=== PATIENT | female | born 1935 | race Caucasian/White ===

== ENCOUNTER → 2016-10-17 | Outpatient (CLI) | payer MEDICARE, OTHER ==
--- NOTE | 2016-10-19 13:33 | RAD ---
EXAM DESCRIPTION: Pelvis CLINICAL HISTORY: 80 yearsFemale, LEFT HIP PAIN. M25.552 COMPARISON: None. IMPRESSION: An AP view of the pelvis demonstrates no evidence of acute fracture or destructive osseous lesion. 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 There is narrowing of the joint spaces and mild subchondral sclerosis in both acetabular regions. There are also moderate degenerative changes in both sacroiliac joints. Calcified phleboliths are demonstrated in the pelvis. Electronically signed by: Frederick Redman MD 10/19/2016 1:32 PM CDT Workstation: [id number]
--- NOTE | 2016-10-19 13:35 | RAD ---
EXAM DESCRIPTION: Knee,Left Complete CLINICAL HISTORY: 80 yearsFemale, LEFT KNEE PAIN. M25.562 COMPARISON: None. IMPRESSION: 4 views of the left knee demonstrate no evidence of acute fracture, dislocation, or destructive osseous lesion. Moderate changes of osteoarthritis are demonstrated involving all 3 compartments of the knee, with narrowing of the joint spaces and marginal osteophytes. There is a small suprapatellar joint effusion present. If indicated, an MRI may further evaluate for internal derangement. Electronically signed by: Frederick Redman MD 10/19/2016 1:34 PM CDT Workstation: [id number]
== END | disposition home or self-care (01) ==
LOC: RAD 08:10 → EDSEX 08:10
PROVIDERS: ATTEND Orthopaedic Surgery
DX: M25.562 Pain in left knee (principal); M25.552 Pain in left hip

== ENCOUNTER → 2017-01-28 | Outpatient (CLI) | payer OTHER | LOC: GMAH 14:59 | PROVIDERS: ATTEND Family Medicine | DX: N39.0 Urinary tract infection, site not specified (principal) ==

== ENCOUNTER → 2017-01-28 | Outpatient (CLI) | payer OTHER | LOC: GMAH 10:43 | PROVIDERS: ATTEND Family Medicine | DX: E03.9 Hypothyroidism, unspecified (principal); I10 Essential (primary) hypertension ==

== ENCOUNTER → 2017-02-04 | Outpatient (CLI) | payer OTHER ==
--- NOTE | 2017-02-05 14:50 | MAM ---
EXAM DESCRIPTION: Screening Mammogram,Bilateral CLINICAL HISTORY: 81 yearsFemaleSCREENINGno complaints. Sister with breast cancer. Postmenopausal. Has taken HRT five or more years ago. COMPARISON: Baseline study at this facility. No prior reports available. TECHNIQUE: Bilateral CC and MLO projection and LM/ML full-field images, spots 2-D digital screening mammographic technique. CAD was utilized. FINDINGS: The breast parenchymal density pattern is: Scattered areas of fibroglandular density. No skin thickening or nipple retraction numerous skin moles bilaterally indicated by skin markers. Bilateral vascular calcifications. Bilateral solitary microcalcifications. No focal, stellate mass or density, focal asymmetry , and no suspicious microcalcifications bilaterally. IMPRESSION: BI-RADS CATEGORY: 2 - BENIGN FINDINGS. FOLLOW UP: Routine digital bilateral screening, one year interval from February 2017. Written communication explaining the IMPRESSION and follow-up, will be mailed to the patient and referring health care provider. According to the [employer], yearly mammograms are recommended starting at age 40 and continuing as long as a woman is in good health. Any breast change noted on a breast self-exam should be reported promptly to the patient's healthcare provider. Breast MRI is recommended for women with an approximately 20-25% or greater lifetime risk of breast cancer, including women with a strong family history of breast or ovarian cancer and women who have been treated for Hodgkin's disease. A negative mammographic report should not delay tissue diagnosis in patients with significant clinical history or physical findings. Extremely dense breast tissue limits the sensitivity of digital mammography. Electronically signed by: Talha Edwards MD 02/05/2017 2:49 PM CDT
== END | disposition home or self-care (01) ==
LOC: FT 09:59
PROVIDERS: ATTEND Family Medicine
DX: Z12.31 Encounter for screening mammogram for malignant neoplasm of breast (principal)

== ENCOUNTER → 2017-03-11 | Outpatient (CLI) | payer OTHER | END | disposition home or self-care (01) | LOC: GMAH 17:22 | PROVIDERS: ATTEND Family Medicine | DX: N39.0 Urinary tract infection, site not specified (principal) ==

== ENCOUNTER → 2017-03-30 | Outpatient (CLI) | payer OTHER | LOC: GMAH 23:49 | PROVIDERS: ATTEND Family Medicine | DX: N39.0 Urinary tract infection, site not specified (principal) ==

== ENCOUNTER → 2017-12-09 | Outpatient (CLI) | payer OTHER | LOC: LAB.O 14:24 | PROVIDERS: ATTEND Urology | DX: R31.0 Gross hematuria (principal) ==

== ENCOUNTER → 2018-02-04 | Outpatient (CLI) | payer OTHER | LOC: GMAH 10:30 | PROVIDERS: ATTEND Family Medicine | DX: E03.9 Hypothyroidism, unspecified (principal); I10 Essential (primary) hypertension ==

== ENCOUNTER → 2018-02-16 | Outpatient (CLI) | payer OTHER | LOC: GMAH 14:15 | PROVIDERS: ATTEND Family Medicine | DX: R39.11 Hesitancy of micturition (principal) ==

== ENCOUNTER → 2018-02-26 | Outpatient (CLI) | payer OTHER ==
--- NOTE | 2018-03-01 15:55 | MAM ---
EXAM DESCRIPTION: 3D Screening BILATERAL : Digital Mammography. CLINICAL HISTORY: 82 years Female SCREENING . No complaints or personal history of breast cancer. Sister with breast cancer, and remote family history.. Lifetime risk of developing breast cancer (Tyrer-Cuzick model)(%): 4.8. COMPARISON: Digital screening bilateral mammography 02/04/2017. TECHNIQUE: Bilateral CC and MLO projection full-field images, Digital tomosynthesis mammographic technique. Bilateral digital 2-D full-field MLO images. CAD not utilized. FINDINGS: The breast parenchymal density pattern is: Scattered areas of fibroglandular density. No skin thickening or nipple retraction. . Bilateral vascular calcifications. Right axillary lymph nodes. Bilateral solitary microcalcifications.. Bilateral skin moles. No new focal, stellate mass or density, focal asymmetry , and no suspicious microcalcifications bilaterally. Stable mammograms compared to prior study. Taking into account, differences in mammographic technique. IMPRESSION: Benign exam. BIRAD CATEGORY: 2 BENIGN FINDINGS. RECOMMENDATIONS: FOLLOW UP: Routine digital bilateral screening, one year interval from February 2018. Written communication explaining the IMPRESSION and follow-up, will be mailed to the patient and referring health care provider. According to the [employer], yearly mammograms are recommended starting at age 40 and continuing as long as a woman is in good health. Any breast change noted on a breast self-exam should be reported promptly to the patient's healthcare provider. Breast MRI is recommended for women with an approximately 20-25% or greater lifetime risk of breast cancer, including women with a strong family history of breast or ovarian cancer and women who have been treated for Hodgkin's disease. A negative mammographic report should not delay tissue diagnosis in patients with significant clinical history or physical findings. Extremely dense breast tissue limits the sensitivity of digital mammography. Electronically signed by: Talha Edwards MD 03/01/2018 3:53 PM CDT
== END ==
LOC: MAMMO 10:30
PROVIDERS: ATTEND Family Medicine
DX: Z12.31 Encounter for screening mammogram for malignant neoplasm of breast (principal)

== ENCOUNTER → 2019-02-08 | Outpatient (CLI) | payer OTHER | LOC: GMA MATASK 10:45 | PROVIDERS: ATTEND Family Medicine | DX: I10 Essential (primary) hypertension (principal); E03.9 Hypothyroidism, unspecified ==

== ENCOUNTER → 2020-02-14 | Outpatient (CLI) | payer OTHER | LOC: GMA MATASK 14:13 | PROVIDERS: ATTEND Family Medicine | DX: I10 Essential (primary) hypertension (principal) ==

== ENCOUNTER 2020-03-24 12:28 | Observation (INO) | payer OTHER ==
[2020-03-24] MEDS ORDERED: SODIUM CHLORIDE 0.9% 1000ML 1,000 ML IVS PRN (12:58)
[2020-03-24] MEDS ORDERED: SODIUM CHLORIDE 0.9% (FLUSH) 10 ML SYG IV PRN ×2 (12:58→18:14)
--- NOTE | 2020-03-24 13:09 | ED.PDOC ---
History of Present Illness - General Chief Complaint: Trauma Stated Complaint: fall Time Seen by Provider: 03/24/20 12:57 Source: patient, family Exam Limitations: physical impairment - Patient and are both very hard of hearing - History of Present Illness Initial Comments: This is an 84-year-old female presenting to the emergency department with her for multiple falls in the last 2 days. Patient reportedly fell yesterday and was seen in the [facility]. He states that she was taking a shower and fell in the shower. It is unknown whether it was a syncopal episode or whether she had any loss of consciousness from the fall. He found her in the shower and took her to the emergency room. There was reportedly some concern in the [facility] for a possible stroke and was sent by helicopter to [facility]. Her work-up there was negative and she was discharged home. states that she got up around 2 AM this morning and found her on the floor again. Situation was unclear. She does not have any recollection of the fall. Family states she has not been eating or drinking well and that she has been too weak to walk. They deny any vomiting or diarrhea. Denies any fever or cough. No Covid contacts. Patient's O2 sats on arrival 90% on room air. She is also reporting some low back pain. Allergies/Adverse Reactions: Allergies NO KNOWN ALLERGY Allergy (Verified 03/24/20 13:03) Home Medications: Ambulatory Orders Amoxicillin 500 mg PO BID 03/24/20 Hydrochlorothiazide 12.5 mg PO DAILY 03/24/20 Levothyroxine Sodium 50 mcg PO DAILY 03/24/20 Meclizine HCl [Meclizine 25] 25 mg PO DAILY PRN 03/24/20 Simvastatin 10 mg PO DAILY 03/24/20 Review of Systems - Review of Systems Constitutional: States: weakness, other - Decreased appetite. Denies: chills, fever EENTM: Denies: ear pain, nose pain, nose congestion, throat pain Respiratory: Denies: cough, short of breath, wheezing Cardiology: Denies: chest pain, edema Gastrointestinal/Abdominal: Denies: abdominal pain, diarrhea, nausea, vomiting Genitourinary: Denies: dysuria, hematuria, pain Musculoskeletal: States: back pain. Denies: joint pain, joint swelling, muscle stiffness, neck pain Skin: Denies: lesions, rash Neurological: Denies: headache, tingling, weakness Endocrine: Denies: excessive sweating, increased hunger, increased thirst, increased urine Hematologic/Lymphatic: States: no symptoms reported Past Medical History (General) - Patient Medical History Hx Pacemaker: No Surgical History: no surgical history - Vaccination History Hx Tetanus, Diphtheria Vaccination: No Hx Influenza Vaccination: Yes Hx Pneumococcal Vaccination: Yes - Social History Hx Tobacco Use: No Hx Alcohol Use: No Family Medical History - Family History Mother Family History: Unknown Physical Exam - Physical Exam General Appearance: Alert, Comfortable Head Injury: no evidence of injury, other - Normocephalic, atraumatic ENT Exam: no evidence of ENT injury, no dental injury - Hard of hearing, other Neck Exam: non-tender, full range of motion, normal alignment, normal inspection Cardiovascular/Respiratory: regular rate, rhythm, no M/R/G, normal peripheral pulses, no JVD, normal breath sounds Gastrointestinal/Abdominal: normal bowel sounds, soft, tenderness - Right lower quadrant Back Exam: no CVA tenderness, vertebral tenderness - Lower L-spine without step- offs or deformity right lower quadrant Neurologic: manager medicare II-XII nml as tested, no motor/sensory deficits, alert, oriented x 3, other - Answers orientation questions slowly, but correctly. Does appear to be somewhat confused. The daughter states her confusion is markedly different from her baseline. Skin Exam: normal color, warm/dry - [place] Coma Score Best Eye Response (Juve): (4) open spontaneously Best Verbal Response (Juve): (5) oriented Best Motor Response (Juve): (6) obeys commands Progress - Progress Progress: 03/24/20 13:04 Old records from [facility] from ED visit yesterday reviewed. CT head showed no acute intracranial abnormality and chronic microvascular ischemic disease. CT cervical spine showed multilevel degenerative changes without acute fracture. CT of the chest/abdomen/pelvis showed no acute traumatic injury. She has a cystic lesion of the pancreatic head, small hiatal hernia, right upper lobe micronodule. No acute fractures of thoracic or lumbar spine. Grade 1 anterolisthesis of L4/5. Her creatinine was 1.5, anion gap of 15, chloride of 95, potassium 3.3. 03/24/20 15:41 Discussed with Matt Pierce NP. Reviewed labs, imaging, exam findings. Will place in observation, plan for MRI in a.m. as well as fluids to correct dehydration. DDx: Sepsis, ICH, traumatic injury, COVID-19, UTI MDM: This is the patient's second ER visit in approximately 24 hours for falls of uncertain etiology, unclear if these are syncopal episodes or mechanical falls. Patient has no recollection. She is confused but answers orientation questions appropriately for me. There is no focal deficits on exam. She was seen at [facility] last night and had negative work-up, including CT head/C- spine/abdomen/pelvis. Labs are reassuring. Repeat CT and C-spine were negative. She had some mild right lower quadrant tenderness on exam, but given CT with contrast performed less than 24 hours ago, elected not to repeat contrasted CT. Her abdominal exam had mild right lower quadrant tenderness initially, but this resolved in the emergency department. CT of the chest without contrast showed atelectasis, no pneumonia, pneumothorax, or evidence of COVID-19. UA is clear. She was hypoxic with O2 sats in the upper 80s and low 90s, she does not use oxygen at home. The etiology of her hypoxia is unclear. Given her frequent falls, altered mental status, hypoxia, do not feel she is safe to go home. Will admit for further work-up. She does appear somewhat dehydrated on labs, osmolality is 265, potassium 3.1. Will give IV hydration. Santi Romano DO [id number] - Results/Orders Results/Orders: EKG reviewed personally by me at 12:46 PM. Normal sinus rhythm, rate of 69, normal axis, normal intervals, poor R wave progression, no ST segment elevations or depressions. Chest x-ray reviewed personally by me at 1:39 PM. No pneumothorax, no rib fracture, questionable left lower lobe infiltrate. Will CT chest without contrast. Pelvis x-ray shows degenerative changes of both hips, no pelvic or hip fractures, there is still contrast material in the bladder from CTs yesterday. EXAM DESCRIPTION: Cervical Spine CLINICAL HISTORY: 84 years Female fall at home, AMS, low O2 sats COMPARISON: None TECHNIQUE: Contiguous axial images were obtained through the cervical spine. Coronal and sagittal reconstructions are also obtained and reviewed. This exam was performed according to our departmental dose-optimization program, which includes automated exposure control, adjustment of the mA and/or kV according to patient size and/or use of iterative reconstruction technique. FINDINGS: VERTEBRAE: There is no evidence of acute fracture, osseous destruction or osteoblastic changes. There is no evidence of subluxation or dislocation. Vertebral body heights are maintained. There is no gross malalignment. Slight anterolisthesis of C3 relative to C4 is probably on the basis of moderate facet arthropathy. Reversal of the cervical lordosis centered at C5 can indicate spasm. There is multilevel facet arthropathy bilaterally. DISCS AND NEURAL FORAMINA: There is severe narrowing of the disc height at C5-6 and C6-7 with vertebral body and uncovertebral marginal osteophytosis. There is severe neural foraminal encroachment on the left at C2-3, bilaterally at C3-4 and to a milder degree bilaterally at C5-6 and C6-7. SOFT TISSUES: The prevertebral soft tissues are normal. There is no evidence of lymphadenopathy. LUNG APICES: The visualized lung apices show no gross pneumonia, mass or pneumothorax. OTHER OSSEOUS STRUCTURES: The visualized portions of the skull base and brain are normal. There are severe degenerative changes in the temporomandibular joints bilaterally with flattening of the mandibular condyles. IMPRESSION: NO ACUTE OSSEOUS ABNORMALITIES. (Please note that spinal CT scan examinations have limited accuracy in evaluating epidural disease. Correlation with MRI exam (or myelography as clinically appropriate) is suggested if there is clinical concern for epidural disease such as intervertebral disc herniations, epidural abscess/hematoma, or epidural neoplasm.) MULTILEVEL CERVICAL SPONDYLOSIS. SLIGHT ANTEROLISTHESIS OF C3 RELATIVE TO C4 IS PROBABLY ON THE BASIS OF MODERATE FACET ARTHROPATHY. REVERSAL OF THE CERVICAL LORDOSIS CENTERED AT C5 CAN INDICATE SPASM. Electronically signed by: Stella Anguiano MD 03/24/2020 2:13 PM PROCEDURE: CT Head Without Intravenous Contrast CLINICAL INDICATION: The patient is 84 years years old, Female; altered mental status, multiple falls TECHNIQUE: Axial computed tomography images of the head/brain without intravenous contrast. Sagittal and coronal reformatted images were created and reviewed. This CT exam was performed using one or more of the following dose reduction techniques: automated exposure control, adjustment of the mA and/or kV according to patient size, and/or use of iterative reconstruction technique. COMPARISON: No relevant prior studies available. FINDINGS: ARTIFACTS: This study is mildly compromised over the convexity by motion artifact. BRAIN: No intracerebral or extracerebral mass lesions are identified. There is all moderate to severe patchy hypodensity of the cerebral white matter which is nonspecific but likely secondary to chronic microvascular ischemic changes in end vessel distributions. Drummond/white matter distinction is maintained. There is no evidence of intracranial hemorrhage. Suspect the appearance of mild cortical density in the frontal lobes bilaterally is most likely secondary to motion artifact There is no evidence of acute territorial infarct. (It should be noted that acute infarct may not be discernible in the first [address] ) MIDLINE SHIFT: There is no shift of the midline structures. VENTRICLES: There is promine nce of the ventricles, sulci, cerebellar folia, and basilar cisterns consistent with volume loss. BONES/JOINTS: There is no acute calvarial abnormality or other discernible acute osseous abnormalities. SOFT TISSUES: Unremarkable. VASCULATURE: There is atherosclerotic calcification in the siphons of the bilateral internal carotid arteries. SINUSES: The visualized paranasal sinuses are clear. MASTOID AIR CELLS: The mastoids and middle ears are clear. ORBITS: There are senescent changes in the orbits bilaterally. NASAL CAVITY/SEPTUM: There is rightward deviation of the mid portion of the nasal septum which may reflect remote trauma. There are IMPRESSION: 1. No acute intracranial abnormality. (It should be noted that acute infarct may not be discernible in the first [address]) a follow-up head ct or mri is recommended if neurologic symptoms persist. 2. Volume loss. 3. Nonspecific white matter lucency, most likely deep white matter ischemic changes. Demyelination and gliosis also in the differential. 4. ASVD. 5. Remainder of findings as discussed above. Electronically signed by: Stella Anguiano MD 03/24/2020 2:07 PM [employer] EXAM DESCRIPTION: Chest w/o Contrast CLINICAL HISTORY: 84 years Female possible pneumonia TECHNIQUE: Axial scans of the chest was performed without intravenous contrast administration. This exam was performed according to our departmental dose-optimization program, which includes automated exposure control, adjustment of the mA and/or kV according to patient size and/or use of iterative reconstruction technique. COMPARISON: Chest radiograph March 24, 2020. FINDINGS: Lungs / airways: Minimal bibasilar dependent atelectasis. No consolidation. Airways are patent. Pleura: No pleural effusion. No pneumothorax. Mediastinum: No mediastinal or hilar mass. Heart: Heart is normal in size. No pericardial effusion. Vasculature: Aorta is normal in caliber. Osseous: Mild multilevel degenerative changes. Soft tissues: Unremarkable. Visualized upper abdomen: Small hiatal hernia. IMPRESSION: 1. Minimal bibasilar dependent atelectasis. 2. No focal pneumonia. Electronically signed by: Wil Archuleta MD 03/24/2020 2:15 EXAM DESCRIPTION: Lumbar Spine CLINICAL HISTORY: 84 years Female back pain, multiple falls TECHNIQUE: Noncontrast lumbar spine CT with sagittal and coronal reconstructions. All CT scans at this facility use dose modulation, iterative reconstruction, and/or weight based dosing when appropriate to reduce radiation dose to as low as reasonably achievable. COMPARISON: None. FINDINGS: Vertebra: No acute fracture. Degenerative: Multilevel degenerative changes with mild to moderate L4-L5 spinal canal stenosis. Alignment: Grade 1 degenerative anterolisthesis of L4. Soft tissues: Unremarkable. Other: Right greater than left bilateral renal cysts. IMPRESSION: No acute osseous findings. Electronically signed by: Wil Archuleta MD 03/24/2020 3:10 Departure - Departure Clinical Impression: Multiple falls, Altered mental status, Dehydration, Hypoxia Disposition: Admit Patient Condition: Fair Home Medications: Ambulatory Orders Amoxicillin 500 mg PO BID 03/24/20 Hydrochlorothiazide 12.5 mg PO DAILY 03/24/20 Levothyroxine Sodium 50 mcg PO DAILY 03/24/20 Meclizine HCl [Meclizine 25] 25 mg PO DAILY PRN 03/24/20 Simvastatin 10 mg PO DAILY 03/24/20
--- NOTE | 2020-03-24 14:09 | CT ---
PROCEDURE: CT Head Without Intravenous Contrast CLINICAL INDICATION: The patient is 84 years years old, Female; altered mental status, multiple falls TECHNIQUE: Axial computed tomography images of the head/brain without intravenous contrast. Sagittal and coronal reformatted images were created and reviewed. This CT exam was performed using one or more of the following dose reduction techniques: automated exposure control, adjustment of the mA and/or kV according to patient size, and/or use of iterative reconstruction technique. COMPARISON: No relevant prior studies available. FINDINGS: ARTIFACTS: This study is mildly compromised over the convexity by motion artifact. BRAIN: No intracerebral or extracerebral mass lesions are identified. There is all moderate to severe patchy hypodensity of the cerebral white matter which is nonspecific but likely secondary to chronic microvascular ischemic changes in end vessel distributions. Drummond/white matter distinction is maintained. There is no evidence of intracranial hemorrhage. Suspect the appearance of mild cortical density in the frontal lobes bilaterally is most likely secondary to motion artifact There is no evidence of acute territorial infarct. (It should be noted that acute infarct may not be discernible in the first [address] ) MIDLINE SHIFT: There is no shift of the midline structures. VENTRICLES: There is prominence of the ventricles, sulci, cerebellar folia, and basilar cisterns consistent with volume loss. BONES/JOINTS: There is no acute calvarial abnormality or other discernible acute osseous abnormalities. SOFT TISSUES: Unremarkable. VASCULATURE: There is atherosclerotic calcification in the siphons of the bilateral internal carotid arteries. SINUSES: The visualized paranasal sinuses are clear. MASTOID AIR CELLS: The mastoids and middle ears are clear. ORBITS: There are senescent changes in the orbits bilaterally. NASAL CAVITY/SEPTUM: There is rightward deviation of the mid portion of the nasal septum which may reflect remote trauma. There are IMPRESSION: 1. No acute intracranial abnormality. (It should be noted that acute infarct may not be discernible in the first [address]) a follow-up head ct or mri is recommended if neurologic symptoms persist. 2. Volume loss. 3. Nonspecific white matter lucency, most likely deep white matter ischemic changes. Demyelination and gliosis also in the differential. 4. ASVD. 5. Remainder of findings as discussed above. Electronically signed by: Stella Anguiano MD 03/24/2020 2:07 PM [facility]
--- NOTE | 2020-03-24 14:14 | CT ---
EXAM DESCRIPTION: Cervical Spine CLINICAL HISTORY: 84 years Female fall at home, AMS, low O2 sats COMPARISON: None TECHNIQUE: Contiguous axial images were obtained through the cervical spine. Coronal and sagittal reconstructions are also obtained and reviewed. This exam was performed according to our departmental dose-optimization program, which includes automated exposure control, adjustment of the mA and/or kV according to patient size and/or use of iterative reconstruction technique. FINDINGS: VERTEBRAE: There is no evidence of acute fracture, osseous destruction or osteoblastic changes. There is no evidence of subluxation or dislocation. Vertebral body heights are maintained. There is no gross malalignment. Slight anterolisthesis of C3 relative to C4 is probably on the basis of moderate facet arthropathy. Reversal of the cervical lordosis centered at C5 can indicate spasm. There is multilevel facet arthropathy bilaterally. DISCS AND NEURAL FORAMINA: There is severe narrowing of the disc height at C5-6 and C6-7 with vertebral body and uncovertebral marginal osteophytosis. There is severe neural foraminal encroachment on the left at C2-3, bilaterally at C3-4 and to a milder degree bilaterally at C5-6 and C6-7. SOFT TISSUES: The prevertebral soft tissues are normal. There is no evidence of lymphadenopathy. LUNG APICES: The visualized lung apices show no gross pneumonia, mass or pneumothorax. OTHER OSSEOUS STRUCTURES: The visualized portions of the skull base and brain are normal. There are severe degenerative changes in the temporomandibular joints bilaterally with flattening of the mandibular condyles. IMPRESSION: NO ACUTE OSSEOUS ABNORMALITIES. (Please note that spinal CT scan examinations have limited accuracy in evaluating epidural disease. Correlation with MRI exam (or myelography as clinically appropriate) is suggested if there is clinical concern for epidural disease such as intervertebral disc herniations, epidural abscess/hematoma, or epidural neoplasm.) MULTILEVEL CERVICAL SPONDYLOSIS. SLIGHT ANTEROLISTHESIS OF C3 RELATIVE TO C4 IS PROBABLY ON THE BASIS OF MODERATE FACET ARTHROPATHY. REVERSAL OF THE CERVICAL LORDOSIS CENTERED AT C5 CAN INDICATE SPASM. Electronically signed by: Stella Anguiano MD 03/24/2020 2:13 PM [facility]
--- NOTE | 2020-03-24 14:16 | CT ---
EXAM DESCRIPTION: Chest w/o Contrast CLINICAL HISTORY: 84 years Female possible pneumonia TECHNIQUE: Axial scans of the chest was performed without intravenous contrast administration. This exam was performed according to our departmental dose-optimization program, which includes automated exposure control, adjustment of the mA and/or kV according to patient size and/or use of iterative reconstruction technique. COMPARISON: Chest radiograph March 24, 2020. FINDINGS: Lungs / airways: Minimal bibasilar dependent atelectasis. No consolidation. Airways are patent. Pleura: No pleural effusion. No pneumothorax. Mediastinum: No mediastinal or hilar mass. Heart: Heart is normal in size. No pericardial effusion. Vasculature: Aorta is normal in caliber. Osseous: Mild multilevel degenerative changes. Soft tissues: Unremarkable. Visualized upper abdomen: Small hiatal hernia. IMPRESSION: 1. Minimal bibasilar dependent atelectasis. 2. No focal pneumonia. Electronically signed by: Wil Archuleta MD 03/24/2020 2:15 PM WOOD TILE INSTALLER
--- NOTE | 2020-03-24 15:12 | RAD ---
EXAM DESCRIPTION: Pelvis CLINICAL HISTORY: 84 years Female fall at home, weakness, difficulty walking COMPARISON: Pelvis dated 10/17/2016 TECHNIQUE: AP view of the pelvis is obtained. FINDINGS: OSSEOUS: There is scattered enthesopathy. There is multilevel lumbar spondylosis with vertebral body marginal osteophytosis. There is no evidence of acute fracture or osteolytic/osteoblastic lesions. There is no evidence of subluxation or dislocation. The hip joint spaces are preserved. The SI joints are preserved and sacral foraminal lines are intact. There is no evidence of degenerative osteophytosis or sclerosis. There is no evidence of marginal erosive changes to suggest an inflammatory arthritis. SOFT TISSUE: There is no significant soft tissue swelling or mass. No evidence of significant soft tissue calcifications. No radiopaque foreign bodies. No evidence of hip joint effusions. Contrast is identified in a normal-appearing urinary bladder without discernible filling defects, cystolithiasis or mucosal abnormalities. Incidentally noted is gaseous distention of the transverse colon. There is no evidence of intestinal obstruction. IMPRESSION: No acute osseous abnormalities. Remainder of findings as described above. Electronically signed by: Stella Anguiano MD 03/24/2020 3:11 PM [facility]
--- NOTE | 2020-03-24 15:12 | CT ---
EXAM DESCRIPTION: Lumbar Spine CLINICAL HISTORY: 84 years Female back pain, multiple falls TECHNIQUE: Noncontrast lumbar spine CT with sagittal and coronal reconstructions. All CT scans at this facility use dose modulation, iterative reconstruction, and/or weight based dosing when appropriate to reduce radiation dose to as low as reasonably achievable. COMPARISON: None. FINDINGS: Vertebra: No acute fracture. Degenerative: Multilevel degenerative changes with mild to moderate L4-L5 spinal canal stenosis. Alignment: Grade 1 degenerative anterolisthesis of L4. Soft tissues: Unremarkable. Other: Right greater than left bilateral renal cysts. IMPRESSION: No acute osseous findings. Electronically signed by: Wil Archuleta MD 03/24/2020 3:10 PM TOWER SUPERVISOR
--- NOTE | 2020-03-24 15:14 | RAD ---
EXAM DESCRIPTION: EXAM DESCRIPTION: X Ray Chest,1 View CLINICAL HISTORY: 84 years Female, fall at home, weakness, difficulty walking COMPARISON: None. FINDINGS/IMPRESSION: 1. Cardiomediastinal silhouette is normal. 2. Minimal left basilar atelectasis. 3. No pneumothorax or pleural effusion. 4. No acute osseous findings. Electronically signed by: Wil Archuleta MD 03/24/2020 3:12 PM INVESTOR RELATIONS DIRECTOR
[2020-03-24] MEDS ORDERED: POTASSIUM CHLORIDE 20 MEQ TAB PO ONE (16:26)
--- NOTE | 2020-03-24 17:28 | HP ---
SUPERVISING PHYSICIAN: Hermes Chatman M.D. CHIEF COMPLAINT: Altered mental statu and syncope. HISTORY OF PRESENT ILLNESS: This is an 84 year-old female who came to the Emergency Room with recurrent fall and some altered mental status. Apparently she has had multiple falls over the last couple of days. She reportedly fell yesterday and was seen in [place] [facility]. Apparently the patient was taking a shower and fell while taking a shower. The patient did not recall the fall and does not know if she lost consciousness but she was seen in the [place] [facility] who subsequently sent her to [facility] for a possible stroke. Her workup done there was pretty extensive, but was negative. There she had a CT of the head which showed no acute intracranial findings. CT of the cervical spine which showed multifocal degenerative changes but no acute fractures. CT of the chest, abdomen and pelvis showed no acute trauma as well. There was incidental findings of a cystic lesion of the pancreatic head, small annular area and a right upper lobe nodule seen on those exams. Here in the Emergency Room today, she was slightly hypoxic with O2 saturations of 90%, however there were no significant findings on chest x-ray. She has not been coughing or short of breath at home. No COVID-19 contacts. She was tested here in the Emergency Room and was negative as well. Family did admit that she has not been eating or drinking well lately and she has been very weak. They state before this started to occur a couple of days ago she has been alert and oriented and very functional. At time of exam, she is complaining of some low back discomfort but otherwise no complaints. She is confused. Cannot tell me exactly where she is and at first I asked her what day it was and she said she did not know, and then told me that it was 2019 in March, and nearly the last week in March but could not tell me the exact date. PAST MEDICAL HISTORY: 1. Hypertension. 2. Hyperlipidemia. 3. Hypothyroidism. PAST SURGICAL HISTORY: No documented surgical history. CURRENT MEDICATIONS: 1. Simvastatin. 2. Meclizine. 3. Levothyroxine. 4. Hydrochlorothiazide. ALLERGIES: NO KNOWN DRUG ALLERGIES. FAMILY HISTORY: Cannot be obtained from the patient due to the fact that she had some confusion. SOCIAL HISTORY: Nondrinker, nonsmoker. No illicit drugs. REVIEW OF SYSTEMS: CONSTITUTIONAL: No fever or chills. No recent weight loss or weight gain. HEENT: No headaches or vision changes. RESPIRATORY: No cough, hemoptysis or pleuritic chest pain. CARDIOVASCULAR: No chest pain, palpitations or peripheral edema. GASTROINTESTINAL: No nausea, vomiting, diarrhea, constipation or abdominal pain, but decreased appetite. GENITOURINARY: No dysuria, frequency or flank pain. ENDOCRINE: No polydipsia, polyuria or polyphagia. No heat or cold intolerance. MUSCULOSKELETAL: Positive for some back pain, but no joint pain or muscle cramping. HEMATOLOGIC: Positive for easy bruising, but no transfusion reaction. NEUROLOGIC: Positive for syncope. No paresthesias or seizures. PHYSICAL EXAMINATION: VITAL SIGNS: Blood pressure 160/75, heart rate 58, respiratory rate 20, temperature 97.3, oxygen saturation 92% on 2 liters via nasal cannula. GENERAL: Ms. Gonzalez is an 84 year-old female who is in no distress currently. NEUROLOGIC: The patient is alert. There are no focal deficits. She is confused about the place and exact time. LUNGS: Clear to auscultation bilaterally. CARDIOVASCULAR: Regular rate and rhythm. Normal S1, S2. ABDOMEN: Soft. Positive bowel sounds. EXTREMITIES: Lower extremities with no significant edema. 2+ pulses. Capillary refill less than 2 seconds. LABORATORY: WBC of 10.5, hemoglobin 12.7, hematocrit 36.9, platelet count 325. Coagulation studies are normal. Chemistry has a sodium of 130, potassium 3.1, chloride 89, CO2 is 27, BUN 23, creatinine 1.4, glucose 111, calcium 9.1, lactate 1.3. CK is slightly elevated at 492, troponin I is 0.04. BNP is 80. Urinalysis is negative for urinary tract infection. She had multiple diagnostics. CT scan of the cervical spine showed no acute abnormalities, although there is multilevel cervical spondylosis. Chest x-ray is not indicative of any acute process, although there is some mild left basilar atelectasis. CT scan of the head showed no acute abnormality. Pelvis with no acute fracture. CT scan of the lumbar spine showed no acute abnormalities. CT scan of the chest shows mild bibasilar atelectasis but no focal pneumonia. ASSESSMENT: 1. Altered mental status. 2. Possible syncopal episode with multiple frequent falls. 3. Acute kidney injury. 4. Electrolyte imbalance. 5. Hypertension. PLAN: Will admit the patient for IV hydration and electrolyte replacement. Recheck those labs in the morning. I will put her on DVT prophylaxis while she is here. Restart her home medications once they are verified in the computer. Will put her on continuous cardiac monitoring to see if she is having any arrhythmias that are causing her falls. If her observation status is normal with no advance, she may need an MRI at some point. So far there is no significant findings on diagnostics and labs to explain her altered mental status. #[id number] [facility]
[2020-03-24] MEDS ORDERED: ENOXAPARIN SODIUM 40 MG/0.4 ML SYG SUBCU SCH (18:30)
[2020-03-24] MEDS ORDERED: IV SET AND CAP CHANGE INJ INJ SCH (18:30)
[2020-03-24] MEDS ORDERED: KCL 20 MEQ/NS 1,000 ML IVS ONE (20:26)
[2020-03-24] MEDS ORDERED: ENOXAPARIN SODIUM 40 MG/0.4 ML SYG SUBCU ONE (20:26)
[2020-03-24] MEDS: KCL 20 MEQ/NS 1,000 ML IVS PRN (21:08)
[2020-03-25] MEDS ORDERED: KCL 20 MEQ/NS 1,000 ML IVS ONE (07:53)
[2020-03-25] MEDS: KCL 20 MEQ/NS 1,000 ML IVS PRN (07:56)
[2020-03-25] MEDS ORDERED: LEVOTHYROXINE SODIUM 0.025 MG TAB ONE (08:29)
[2020-03-25] MEDS ORDERED: SIMVASTATIN 10 MG TAB PO ONE (08:29)
[2020-03-25] MEDS ORDERED: SIMVASTATIN 10 MG TAB PO SCH (09:00)
[2020-03-25] MEDS ORDERED: NON-FORMULARY MEDICATION 1 EA MIS (Levothyroxine Sodium [Levothyroxine Sodium] 50 MCG) PO SCH (09:00)
[2020-03-25 18:24] VITALS: BP 180/78; TEMP 97.8; O2SAT 96
--- NOTE | 2020-03-25 21:37 | DS ---
SUPERVISING PHYSICIAN: Hermes Chatman M.D. DISCHARGE DIAGNOSIS: 1. Altered mental status. 2. Possible syncopal episode with multiple frequent falls. 3. Acute kidney injury that has improved. 4. Electrolyte imbalance that has improved. 5. Hypertension. HISTORY OF PRESENT ILLNESS: This is an 84 year-old female patient who came to the Emergency Room due to recurrent falls and some altered mental status. She has had multiple falls over the last couple of days. According to her , she fell while in the shower and she was seen in [place] [facility]. They flew her to [facility] in [place] for a possible stroke. She stayed overnight and had a fairly extensive workup, but it was all negative. There she had a CT of the head which showed no acute intracranial findings. Here in our Emergency Room she was slightly hypoxic with an O2 saturation of 90% but there were no significant findings on chest x-ray. There had been no coughing or shortness of breath. No COVID-19 contacts. She was tested for COVID and it was found to be negative. Family did admit she has not been eating or drinking well lately and has been very weak. She has also been taking her Meclizine for her dizziness and has not been eating. Upon until just a week or so ago, she had been highly functional and was alert and oriented. After returning home from [facility], they had actually been home for a few hours and her woke up and noticed that she had gotten up in the middle of the night. He could not find her and then he eventually found her in the bathroom. She was awake but she was sitting on the floor. She was quite confused. She did not know how she had gotten there. He did not know if she lost consciousness and the patient could not remember the incident. Because the Emergency Room sent her to [place] and they really wanted to come to [place], the patient's called his children and they came over and assisted her into the car and he brought her over to the [place] [facility]. In the Emergency Room, she had some back discomfort but otherwise no complaints. She was confused. She had a workup in the Emergency Room and she was placed in observation in the hospital. HOSPITAL COURSE: She was given IV hydration as well as electrolyte replacement. Her labs were rechecked. In the morning, she was placed on DVT prophylaxis and her home medications were restarted. She had a continuous salesperson women's dresses and there were no arrhythmias noted. Today, the patient is somewhat more alert. She is oriented to person and place. She does know it is March, but cannot tell the exact date. Her labs have normalized. Her vital signs have been stable. She will be discharged home today in stable condition with close followup with Dr. Chatman, her primary care physician. LABORATORY: CBC was basically unremarkable. Coagulation studies were within normal limits. Initial chemistry showed a sodium of 130, it is now 136. Potassium was 3.1, it is now 3.7. Chloride was 89, it is now 101. Carbon dioxide has remained stable at 25. BUN was 23 with a creatinine of 1.4, after hydration it is now 19 and 1.12. Magnesium is stable at 1.8, creatinine kinase is 492. TSH is 4.5, BNP is 8.2. Unasyn is unremarkable. Ethyl alcohol was less than 5.1. Preliminary blood cultures are negative. Chest CT shows: 1. Minimal bibasilar dependent atelectasis. 2. No focal pneumonia. Lumbar spine CT shows no acute osseous findings. Pelvis x-ray shows no acute osseous abnormalities. Head CT shows: 1. No acute intracranial abnormality. Followup of the head CT or MRI recommended if neurological symptoms persist. 2. Volume loss. 3. Nonspecific white matter lucency most likely deep white matter ischemic changes, demyelination and gliosis is also in the differential. 4. Atherosclerotic cardiovascular disease. 5. The remainder of the findings is per the CT report. Chest x-ray shows: 1. Cardiomediastinal silhouette is normal. 2. Minimal left basilar atelectasis. 3. No pneumothorax or pleural effusion. 4. No acute osseous findings. Cervical spine CT shows no acute osseous abnormalities and multilevel cervical spondylosis, slight anterolisthesis of C3 relative to C4 is probably on the basis of moderate facet arthropathy. Reversal of the cervical lordosis centered at C5 can indicate spasm. All other labs and films have been reviewed via the EMR. DISCHARGE PLAN: The patient will be discharged home in stable condition. She is to resume her previous diet and increase her activity as tolerated. I have cautioned her that she should be monitored at all times until she follows up with Dr. Chatman. He does say that she use a walker to get around and that he would monitor her closely. Dr. Chatman's office will call him on Thursday morning to work her in on Thursday for further workup and post hospital followup. She is to return to the hospital or followup with Dr. Chatman for any problems or complications. I did not send the patient home on aspirin, although it may be beneficial for her to be on aspirin or even Plavix, but I will leave that to Dr. Chatman to decide, especially since he will be seeing her tomorrow. DISCHARGE MEDICATIONS: 1. Hydrochlorothiazide. 2. Simvastatin. 3. Meclizine. 4. Levothyroxine. 5. Amoxicillin. #[id number] [facility]
== END 2020-03-25 15:00 | disposition home or self-care (01) ==
LOC: ER 12:28 → MS 17:27 → INTOOBSV 17:27
PROVIDERS: ADMIT Nurse Practitioner; ATTEND Nurse Practitioner Acute Care
DX: R41.82 Altered mental status, unspecified (principal); R29.6 Repeated falls; N17.9 Acute kidney failure, unspecified; E87.8 Other disorders of electrolyte and fluid balance, not elsewhere classified; E86.0 Dehydration; I10 Essential (primary) hypertension; M54.5 Low back pain; R09.02 Hypoxemia; M47.812 Spondylosis without myelopathy or radiculopathy, cervical region; E78.5 Hyperlipidemia, unspecified; E03.9 Hypothyroidism, unspecified; Z91.81 History of falling; Z20.828 Contact with and (suspected) exposure to other viral communicable diseases; Z79.890 Hormone replacement therapy; Z79.899 Other long term (current) drug therapy
CPT/HCPCS: 96366 ×2; 96365; 96376; 96372; J7030; J1650; A4216 ×2; J3480 ×2; 80048; 80053; 36415 ×3; 81001; 85025; 82550; 87040 ×2; 80320; 83735; 85730; 85610; 84443; 84484; 83880; 83605; 71045; 72170; 70450; 72131; 72125; 71250; 99285; 93005; G0378; 87635

== ENCOUNTER 2020-04-04 14:41 | Emergency (ER) | payer OTHER ==
[2020-04-04] MEDS ORDERED: POTASSIUM CHLORIDE ELIXIR 20 MEQ/15 ML UD PO ONE (16:05)
[2020-04-04] MEDS ORDERED: LEVOTHYROXINE SODIUM 0.1 MG, LEVOTHYROXINE SODIUM 0.025 MG PO ONE ×2 (17:01)
[2020-04-04] MEDS ORDERED: SODIUM CHLORIDE 0.9% 1000ML 1,000 ML IVS ONE (17:18)
--- NOTE | 2020-04-04 17:22 | ED.PDOC ---
History of Present Illness - General Chief Complaint: General Stated Complaint: weakness,decreased appetite Time Seen by Provider: 04/04/20 15:15 Source: patient Exam Limitations: no limitations - History of Present Illness Initial Comments: The patient is an 84-year-old female presented to the emergency room with her secondary to feeling weak and tired and not eating very well over the last week or 2. The patient was recently placed on oral antibiotics for a urinary tract infection. Additionally the patient has had some low potassium at her last visit and has not been taking any supplementation. On top of that for some reason the patient is not taking her thyroid medication. No syncope or near syncope since her last visit to the hospital. She does have a mild headache. No focal neurological changes. Timing/Duration: 1 week Severity: moderate Improving Factors: nothing Worsening Factors: nothing Associated Symptoms: loss of appetite, malaise, weakness Allergies/Adverse Reactions: Allergies NO KNOWN ALLERGY Allergy (Verified 03/24/20 22:48) Home Medications: Ambulatory Orders Amoxicillin 500 mg PO BID 03/24/20 Hydrochlorothiazide 12.5 mg PO DAILY 03/24/20 Levothyroxine Sodium 50 mcg PO DAILY 03/24/20 Meclizine HCl [Meclizine 25] 25 mg PO DAILY PRN 03/24/20 Simvastatin 10 mg PO DAILY 03/24/20 Potassium Chloride [Potassium Chloride ER] 20 meq PO DAILY #14 tab 04/04/20 Review of Systems - Review of Systems Constitutional: States: malaise, weakness - Generalized EENTM: States: no symptoms reported Respiratory: States: no symptoms reported Cardiology: States: no symptoms reported Gastrointestinal/Abdominal: States: no symptoms reported Genitourinary: States: no symptoms reported Musculoskeletal: States: no symptoms reported Skin: States: no symptoms reported Neurological: States: no symptoms reported Endocrine: States: no symptoms reported All other Systems: No Change from Baseline Past Medical History (General) - Patient Medical History Hx Stroke: Yes Hx Congestive Heart Failure: No Hx Pacemaker: No Hx Diabetes: No Surgical History: appendectomy, cholecystectomy, Hysterectomy - Vaccination History Hx Tetanus, Diphtheria Vaccination: No Hx Influenza Vaccination: Yes Hx Pneumococcal Vaccination: Yes - Social History Hx Tobacco Use: No Hx Alcohol Use: No Family Medical History - Family History Mother Family History: Unknown Physical Exam - Physical Exam General Appearance: Alert, Comfortable, No apparent distress Eye Exam: bilateral normal Ears, Nose, Throat: hearing grossly normal, normal pharynx Neck: full range of motion, supple Respiratory: lungs clear, normal breath sounds, no respiratory distress, no accessory muscle use Cardiovascular/Chest: normal peripheral pulses, regular rate, rhythm, no edema Peripheral Pulses: radial,right: 2+ Comments: Vital Signs - 24 hr 04/04/20 04/04/20 04/04/20 15:06 16:13 16:14 Temperature 97.7 F Pulse Rate [ 62 61 86 Left Brachial] Respiratory 20 16 16 Rate Blood Pressure 167/115 145/106 149/86 [Left Arm] O2 Sat by Pulse 95 93 L 93 L Oximetry 04/04/20 04/04/20 16:15 17:00 Temperature Pulse Rate [ 96 H 66 Left Brachial] Respiratory 18 20 Rate Blood Pressure 116/78 156/82 [Left Arm] O2 Sat by Pulse 95 95 Oximetry Progress - Progress Progress: 04/04/20 17:30 The patient is an 84-year-old female presenting with fatigue and anorexia. This is likely multifactorial. The anorexia is likely due to the antibiotics that she is taking. Urinalysis does appear to be improving so I would encourage her to discontinue the antibiotics at this point. She does need to follow-up with her primary care doctor in about a week for a repeat urinalysis. Additionally the patient does have hypokalemia and hyponatremia that are likely contributing to her symptoms. This is likely due to the hydrochlorothiazide. She is to discontinue hydrochlorothiazide. She has been givena dose of oral potassium elixir here. I will write her for short prescription of potassium to take for the next 2 weeks. She does need to have lab work weight redrawn in a week or 2. Additionally the patient has not been taking her Synthroid. Her TSH has gone from normal up to 18 at this point. She needs to resume her Synthroid immediately. She was given a dose of Synthroid here today. The patient does have mild dehydration as well likely due to the hydrochlorothiazide and decreased oral intake. She does need to markedly increase her oral intake of liquids up in the next 24 hours. This has been explained to the patient she does agree. ER warnings were given for any significant worsening. Follow back up with primary care doctor in 1 to 2 weeks. cathryn pang [phone] - Results/Orders Results/Orders: EKG shows normal sinus rhythm at 62 bpm. Normal axis. Borderline R wave progression. No definitive ST segment or T wave changes indicative of acute ischemia. Normal QT interval. Official reads on head CT and chest x-ray are pending however upon my review I see no evidence of acute pathology on either. This is due to technology difficulties at the moment. If there is abnormalities on the final read today will receive a call back. Rapid coronavirus test is negative. Laboratory Results - last 24 hr 04/04/20 04/04/20 04/04/20 15:40 15:40 15:40 WBC 8.8 RBC 4.54 Hgb 14.0 Hct 40.0 MCV 88.2 MCH 30.8 MCHC 34.9 RDW 13.2 Plt Count 375 MPV 6.7 L Absolute Neuts (auto) 6.90 H Absolute Lymphs (auto) 1.10 Absolute Monos (auto) 0.70 Absolute Eos (auto) 0.10 Absolute Basos (auto) 0.10 Neutrophils % 78.3 H Lymphocytes % 12.3 L Monocytes % 7.8 Eosinophils % 0.9 L Basophils % 0.7 PT 9.9 INR 1.00 PTT (SP) 27.0 D-Dimer, Quantitative 538.0 H Sodium 130 L Potassium 3.0 L Chloride 89 L Carbon Dioxide 26 Anion Gap 18.0 BUN 15 Creatinine 1.13 BUN/Creatinine Ratio 13.3 Random Glucose 108 H Serum Osmolality 262.2 L Lactic Acid Calcium 9.2 Magnesium 1.9 Total Bilirubin 1.0 AST 21 ALT 15 Alkaline Phosphatase 56 Creatine Kinase 41 CK-MB (CK-2) 1.5 CK-MB (CK-2) % Not Reportable Troponin I 0.02 B-Natriuretic Peptide 82.2 Serum Total Protein 7.2 Albumin 3.9 Globulin 3.3 Albumin/Globulin Ratio 1.2 Amylase 55 Lipase 38 TSH 18.41 H Urine Color Urine Appearance Urine pH Ur Specific [place] Urine Protein Urine Glucose (UA) Urine Ketones Urine Blood Urine Nitrite Urine Bilirubin Urine Urobilinogen Ur Leukocyte Esterase Urine RBC Urine WBC Ur Epithelial Cells Urine Bacteria 04/04/20 04/04/20 15:40 16:52 WBC RBC Hgb Hct MCV MCH MCHC RDW Plt Count MPV Absolute Neuts (auto) Absolute Lymphs (auto) Absolute Monos (auto) Absolute Eos (auto) Absolute Basos (auto) Neutrophils % Lymphocytes % Monocytes % Eosinophils % Basophils % PT INR PTT (SP) D-Dimer, Quantitative Sodium Potassium Chloride Carbon Dioxide Anion Gap BUN Creatinine BUN/Creatinine Ratio Random Glucose Serum Osmolality Lactic Acid 1.1 Calcium Magnesium Total Bilirubin AST ALT Alkaline Phosphatase Creatine Kinase CK-MB (CK-2) CK-MB (CK-2) % Troponin I B-Natriuretic Peptide Serum Total Protein Albumin Globulin Albumin/Globulin Ratio Amylase Lipase TSH Urine Color Yellow Urine Appearance Sl cloudy Urine pH 6.0 Ur Specific [place] 1.020 Urine Protein Trace Urine Glucose (UA) Negative Urine Ketones 80 H Urine Blood Trace-intact H Urine Nitrite Negative Urine Bilirubin Small H Urine Urobilinogen 0.2 Ur Leukocyte Esterase Negative Urine RBC 0-1 Urine WBC 5-10 H Ur Epithelial Cells >50 Urine Bacteria 2+ H Departure - Departure Clinical Impression: Hyponatremia, Hypokalemia, Anorexia, Dehydration Hypothyroidism Qualifiers: Hypothyroidism type: unspecified Qualified Code(s): E03.9 - Hypothyroidism, unspecified Disposition: Discharge to Home or Self Care Condition: Fair Departure Forms: ED Discharge - Pt. Copy, Patient Portal Self Enrollment Instructions: Hypothyroidism (Underactive Thyroid) (DC), Dehydration, Adult (DC), Hypokalemia (DC) Diet: regular diet Activity: increase activity as tolerated Referrals: Hermes Chatman MD [Primary Care Provider] - 1-2 Weeks Prescriptions: Potassium Chloride [Potassium Chloride ER] 20 meq PO DAILY #14 tab Home Medications: Ambulatory Orders Amoxicillin 500 mg PO BID 03/24/20 Hydrochlorothiazide 12.5 mg PO DAILY 03/24/20 Levothyroxine Sodium 50 mcg PO DAILY 03/24/20 Meclizine HCl [Meclizine 25] 25 mg PO DAILY PRN 03/24/20 Simvastatin 10 mg PO DAILY 03/24/20 Potassium Chloride [Potassium Chloride ER] 20 meq PO DAILY #14 tab 04/04/20 Additional Instructions: The patient is an 84-year-old female presenting with fatigue and anorexia. This is likely multifactorial. The anorexia is likely due to the antibiotics that she is taking. Urinalysis does appear to be improving so I would encourage her to discontinue the antibiotics at this point. She does need to follow-up with her primary care doctor in about a week for a repeat urinalysis. Additionally the patient does have hypokalemia and hyponatremia that are likely contributing to her symptoms. This is likely due to the hydrochlorothiazide. She is to discontinue hydrochlorothiazide. She has been givena dose of oral potassium elixir here. I will write her for short prescription of potassium to take for the next 2 weeks. She does need to have lab work weight redrawn in a week or 2. Additionally the patient has not been taking her Synthroid. Her TSH has gone from normal up to 18 at this point. She needs to resume her Synthroid immediately. She was given a dose of Synthroid here today. The patient does have mild dehydration as well likely due to the hydrochlorothiazide and decreased oral intake. She does need to markedly increase her oral intake of liquids up in the next 24 hours. This has been explained to the patient she does agree. ER warnings were given for any significant worsening. Follow back up with primary care doctor in 1 to 2 weeks.
[2020-04-04 18:35] VITALS: BP 128/92; TEMP 99; O2SAT 93
--- NOTE | 2020-04-04 22:14 | CT ---
CT HEAD WITHOUT IV CONTRAST HISTORY: Headaches, fall x 1 week ago. COMPARISON: 03/24/2020 TECHNIQUE: CT scan of the brain was performed without IV contrast. This exam was performed according to our departmental dose-optimization program, which includes automated exposure control, adjustment of the mA and/or kV according to patient size and/or use of iterative reconstruction technique. FINDINGS: There are scattered areas of hypoattenuation within the periventricular white matter, which likely represent chronic microvascular ischemia. No evidence of acute infarction, intracranial hemorrhage, extra-axial fluid collection, or midline shift. No air-fluid levels are seen in the paranasal sinuses to suggest acute sinusitis. No depressed skull fracture. IMPRESSION: 1. No acute intracranial findings. 2. Senescent changes with chronic microvascular ischemia. Electronically signed by: Dominik Barboza MD 04/04/2020 5:50 PM [facility]
--- NOTE | 2020-04-04 22:23 | RAD ---
XR ABDOMEN SUPINE AND ERECT WITH CHEST (ABD ACUTE SERIES) HISTORY: Abdominal pain. COMPARISON: None. FINDINGS: There is a nonobstructive bowel gas pattern. No evidence of pneumoperitoneum. No radiopaque urinary stones are seen. The visualized lungs are clear. IMPRESSION: Unremarkable bowel gas pattern. Electronically signed by: Dominik Barboza MD 04/04/2020 5:49 PM [facility]
== END 2020-04-04 18:34 | disposition home or self-care (01) ==
LOC: ER 14:41
DX: E03.9 Hypothyroidism, unspecified (principal); E86.0 Dehydration; E87.1 Hypo-osmolality and hyponatremia; E87.6 Hypokalemia; R63.0 Anorexia; R53.1 Weakness; R51.9 Headache, unspecified; Z20.828 Contact with and (suspected) exposure to other viral communicable diseases; Z87.440 Personal history of urinary (tract) infections; Z86.73 Personal history of transient ischemic attack (TIA), and cerebral infarction without residual deficits; Z79.899 Other long term (current) drug therapy
CPT/HCPCS: 36415; 70450; 74019; 80053; 81001; 82150; 82550; 82553; 83605; 83690; 83735; 83880; 84443; 84484; 85025; 85379; 85610; 85730; 87635; 93005; J7030

== ENCOUNTER → 2020-04-17 | Outpatient (CLI) | payer MEDICARE, OTHER | LOC: BFHH 15:18 | PROVIDERS: ATTEND Family Medicine | DX: G45.9 Transient cerebral ischemic attack, unspecified (principal); R41.82 Altered mental status, unspecified; R29.6 Repeated falls ==

== ENCOUNTER 2020-04-24 17:01 | Emergency (ER) | payer MEDICARE, OTHER ==
[2020-04-24] MEDS ORDERED: SODIUM CHLORIDE 0.9% 1000ML 1,000 ML IVS ONE (17:27)
[2020-04-24] MEDS ORDERED: CIPROFLOXACIN 500 MG TAB PO ONE (19:02)
--- NOTE | 2020-04-24 19:05 | ED.PDOC ---
History of Present Illness - General Chief Complaint: Blood Pressure Problem Stated Complaint: low BP,weakness Time Seen by Provider: 04/24/20 17:21 Source: patient Exam Limitations: no limitations - History of Present Illness Initial Comments: The patient is a 84-year-old female presented emergency room secondary to smoke blood pressure checked by home health at home. She has a little bit dizzy today. The lowest blood pressure obtained here had a systolic of 100. The patient had already discontinued her diuretics. No urinary symptoms but she had recently had a urinary tract infection. No syncope. No fall. No abdominal pain. No shortness of breath. No chest pain. No fever. Timing/Duration: unsure Severity: mild Improving Factors: nothing Worsening Factors: nothing Associated Symptoms: denies symptoms Allergies/Adverse Reactions: Allergies NO KNOWN ALLERGY Allergy (Verified 03/24/20 22:48) Home Medications: Ambulatory Orders Levothyroxine Sodium 50 mcg PO DAILY 03/24/20 Simvastatin 10 mg PO BEDTIME 03/24/20 Ciprofloxacin [Cipro] 500 mg PO BID #14 tab 04/24/20 Olmesartan Medoxomil 20 mg PO DAILY 04/24/20 Potassium Chloride [Potassium Chloride ER] 20 meq PO BID 04/24/20 Review of Systems - Review of Systems Constitutional: States: malaise EENTM: States: no symptoms reported Respiratory: States: no symptoms reported Cardiology: States: no symptoms reported Gastrointestinal/Abdominal: States: no symptoms reported Genitourinary: States: no symptoms reported Musculoskeletal: States: no symptoms reported Skin: States: no symptoms reported Neurological: States: see HPI Endocrine: States: no symptoms reported All other Systems: No Change from Baseline Past Medical History (General) - Patient Medical History Hx Stroke: Yes Hx Congestive Heart Failure: No Hx Pacemaker: No Hx Hypertension: Yes Hx Diabetes: No Surgical History: appendectomy, cholecystectomy, Hysterectomy - Vaccination History Hx Tetanus, Diphtheria Vaccination: No Hx Influenza Vaccination: Yes Hx Pneumococcal Vaccination: Yes - Social History Hx Tobacco Use: No Hx Alcohol Use: No Family Medical History - Family History Mother Family History: Unknown Physical Exam - Physical Exam General Appearance: Alert, Comfortable, No apparent distress Eye Exam: bilateral normal Ears, Nose, Throat: hearing grossly normal, normal pharynx Neck: full range of motion, supple Respiratory: lungs clear, normal breath sounds, no respiratory distress, no accessory muscle use Cardiovascular/Chest: normal peripheral pulses, regular rate, rhythm, no edema Peripheral Pulses: radial,right: 2+, radial,left: 2+ Gastrointestinal/Abdominal: non tender, soft Rectal Exam: deferred Back Exam: no CVA tenderness, no vertebral tenderness Extremity: non-tender, normal inspection, no pedal edema, normal capillary refill 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, alert, normal mood/affect, oriented x 3 Skin Exam: normal color Comments: Vital Signs - 24 hr 04/24/20 04/24/20 04/24/20 17:17 17:27 17:29 Temperature 97.7 F Pulse Rate [ 67 66 76 Left Brachial] Respiratory 20 Rate Blood Pressure 141/92 119/78 129/83 [Left Arm] O2 Sat by Pulse 96 Oximetry 04/24/20 04/24/20 04/24/20 17:31 17:48 18:02 Temperature 97.7 F Pulse Rate [ 70 65 66 Left Brachial] Respiratory 18 Rate Blood Pressure 101/66 132/81 [Left Arm] O2 Sat by Pulse 98 Oximetry Progress - Progress Progress: 04/24/20 19:05 The patient is an 84-year-old female presented to emergency room secondary to dizziness from mild hypotension. She does have mild orthostasis. She did receive a liter of IV fluids which did improve blood pressures. At this point in time I am going to have her discontinue the olmesartan and record her blood pressures twice daily while at rest. She needs to follow back up with her primary care doctor in 2 weeks for this. Additionally she does have a urinary tract infection and is going to be placed on 7 days of oral ciprofloxacin. She is to have a repeat urinalysis at her follow-up appointment. She needs to increase her fluid intake. ER warnings are given. cathryn pang 747 - Results/Orders Results/Orders: EKG shows normal sinus rhythm at 68 bpm. Normal axis. Normal R wave progression. No ST segment or T wave changes indicative of acute ischemia. Normal QT interval. Rapid coronavirus test is negative. Laboratory Results - last 24 hr 04/24/20 04/24/20 04/24/20 17:30 17:30 18:45 WBC 6.7 RBC 4.30 Hgb 13.2 Hct 38.8 MCV 90.4 MCH 30.8 MCHC 34.1 RDW 13.8 Plt Count 321 MPV 7.1 L Absolute Neuts (auto) 4.20 Absolute Lymphs (auto) 1.50 Absolute Monos (auto) 0.70 Absolute Eos (auto) 0.20 Absolute Basos (auto) 0.10 Neutrophils % 63.6 Lymphocytes % 22.9 Monocytes % 9.8 H Eosinophils % 2.8 Basophils % 0.9 Sodium 134 L Potassium 4.5 Chloride 97 L Carbon Dioxide 24 Anion Gap 17.5 BUN 13 Creatinine 1.24 BUN/Creatinine Ratio 10.5 Random Glucose 106 H Serum Osmolality 268.8 L Calcium 9.4 Magnesium 1.9 Total Bilirubin 0.5 AST 19 ALT 14 Alkaline Phosphatase 59 Creatine Kinase 63 CK-MB (CK-2) 2.3 CK-MB (CK-2) % Not Reportable Troponin I < 0.02 B-Natriuretic Peptide 162.0 H Serum Total Protein 7.7 Albumin 4.0 Globulin 3.7 H Albumin/Globulin Ratio 1.1 TSH 2.83 Urine Color Yellow Urine Appearance Cloudy Urine pH 7.0 Ur Specific [place] 1.015 Urine Protein Negative Urine Glucose (UA) Negative Urine Ketones Negative Urine Blood Negative Urine Nitrite Positive H Urine Bilirubin Negative Urine Urobilinogen 1.0 Ur Leukocyte Esterase Small H Urine RBC 0-1 Urine WBC 20-30 H Ur Epithelial Cells 5-10 Urine Bacteria 4+ H Departure - Departure Clinical Impression: Orthostasis Urinary tract infection Qualifiers: Urinary tract infection type: acute cystitis Hematuria presence: without hematuria Qualified Code(s): N30.00 - Acute cystitis without hematuria Disposition: Discharge to Home or Self Care Condition: Fair Departure Forms: ED Discharge - Pt. Copy, Patient Portal Self Enrollment Instructions: DI for High Blood Pressure, Orthostatic Hypotension, Urinary Tract Infection, Adult (DC) Diet: regular diet Activity: increase activity as tolerated Referrals: Hermes Chatman MD [Primary Care Provider] - 1-2 Weeks Prescriptions: Ciprofloxacin [Cipro] 500 mg PO BID #14 tab Home Medications: Ambulatory Orders Levothyroxine Sodium 50 mcg PO DAILY 03/24/20 Simvastatin 10 mg PO BEDTIME 03/24/20 Ciprofloxacin [Cipro] 500 mg PO BID #14 tab 04/24/20 Olmesartan Medoxomil 20 mg PO DAILY 04/24/20 Potassium Chloride [Potassium Chloride ER] 20 meq PO BID 04/24/20 Additional Instructions: The patient is an 84-year-old female presented to emergency room secondary to dizziness from mild hypotension. She does have mild orthostasis. She did receive a liter of IV fluids which did improve blood pressures. At this point in time I am going to have her discontinue the olmesartan and record her blood pressures twice daily while at rest. She needs to follow back up with her primary care doctor in 2 weeks for this. Additionally she does have a urinary tract infection and is going to be placed on 7 days of oral ciprofloxacin. She is to have a repeat urinalysis at her follow-up appointment. She needs to increase her fluid intake. ER warnings are given.
[2020-04-24 19:45] VITALS: BP 152/97; TEMP 97.8; O2SAT 96
== END 2020-04-24 19:15 | disposition home or self-care (01) ==
LOC: ER 17:01
DX: I95.1 Orthostatic hypotension (principal); N30.00 Acute cystitis without hematuria; I10 Essential (primary) hypertension; Z86.73 Personal history of transient ischemic attack (TIA), and cerebral infarction without residual deficits; Z79.899 Other long term (current) drug therapy; Z20.828 Contact with and (suspected) exposure to other viral communicable diseases
CPT/HCPCS: 80053; 81001; 82550; 82553; 83735; 83880; 84443; 84484; 85025; 87086; 87088; 87186; 87635; 93005; J7030